=== PATIENT | female | born 1985 | race Caucasian/White ===

== ENCOUNTER → 2016-12-08 | Outpatient (CLI) | payer OTHER | LOC: FIMAGING 13:28 | PROVIDERS: ATTEND Midwife | DX: Z34.02 Encounter for supervision of normal first pregnancy, second trimester (principal); Z87.410 Personal history of cervical dysplasia; Z3A.20 20 weeks gestation of pregnancy ==

== ENCOUNTER 2017-04-19 04:37 | Inpatient (IN) | payer MEDICAID, OTHER ==
[2017-04-19] MEDS ORDERED: LR 1,000 ML IV PRN (04:44)
[2017-04-19] MEDS ORDERED: EPSOM SALT 454 GM TP PRN (04:44)
[2017-04-19] MEDS ORDERED: TERBUTALINE SULFATE 1 MG/ML VIAL IV PRN (04:44)
[2017-04-19] MEDS ORDERED: OXYTOCIN/RINGERS LACTATE 1,000 ML IV PRN (04:44)
[2017-04-19] MEDS ORDERED: IBUPROFEN 600 MG TAB PO PRN (04:44)
[2017-04-19] MEDS ORDERED: OLIVE OIL 118 ML BTL MISC PRN (04:44)
[2017-04-19 05:08] LABS: % IMMATURE GRANULYOCYTES 1.3 % (0.0-1.1); ABSOLUTE IMMATURE GRANULOCYTES 0.25 10^3/uL (0.00-0.10); ADD DIFF? NO; ADD MORPH? NO; ADD SCAN? NO; ATYPICAL LYMPHOCYTE FLAG 0 (0-99); FRAGMENT RBC FLAG 0 (0-99); HEMATOCRIT 36.4 % (38.0-47.0); HEMOGLOBIN 12.8 g/dL (12.6-16.3); LEFT SHIFT FLG 0 (0-99); LIPEMIA HEMOLYSIS FLAG 90 (0-99); MEAN CELL HEMOGLOBIN CONCENTR. 35.2 g/dL (32.4-36.7); MEAN CELL VOLUME 85.2 fL (81.5-99.8); MEAN PLATELET VOLUME 10.8 fL (8.7-11.7); PLATELET CLUMPS FLAG 0 (0-99); PLATELET COUNT 237 10^3/uL (150-400); RED BLOOD CELL COUNT 4.27 10^6/uL (4.18-5.33)
[2017-04-19] MEDS ORDERED: fentaNYL 2MCG/ML/BUP 0.1% RTU 100 ML BAG EP ONE (05:32)
[2017-04-19] MEDS ORDERED: fentaNYL 100 MCG/2 ML INJ ONE (05:32)
[2017-04-19] MEDS ORDERED: PHENYLEPHRINE HCL 100 MCG/ML SYR ONE (05:33)
[2017-04-19] MEDS ORDERED: OLIVE OIL 118 ML BTL ONE (05:38)
[2017-04-19] MEDS ORDERED: LIDOCAINE 1% 300 MG/30 ML SDV ONE (05:38)
[2017-04-19] MEDS ORDERED: AMMONIA AROMATIC 1 EACH AMP IH ONE (05:39)
[2017-04-19] MEDS ORDERED: OXYTOCIN 10 UNIT/ML VIAL ONE (05:39)
[2017-04-19] MEDS ORDERED: TERBUTALINE SULFATE 1 MG/ML VIAL ONE (05:39)
[2017-04-19] MEDS ORDERED: MISOPROSTOL 200 MCG TAB ONE (05:39)
[2017-04-19] MEDS ORDERED: NALOXONE HCL 0.4 MG/ML INJ IVP PRN (06:02)
[2017-04-19] MEDS ORDERED: PHENYLEPHRINE HCL 100 MCG/ML SYR IVP PRN (06:02)
[2017-04-19] MEDS ORDERED: ONDANSETRON 4 MG/2 ML VIAL IVP PRN (06:02)
--- NOTE | 2017-04-19 06:02 | POSTANESTH ---
Post Anesthetic Evaluation Cardiovascular Status: Normal, Stable Respiratory Status: Normal, Stable Level of Consciousness/Mental Status: Can Participate in Eval Pain Control: Adequate, Prn Tx Ordered Nausea/Vomiting Control: Adequate, Prn Tx Ordered Complications Possibly Related to Anesthesia: None Noted
[2017-04-19] MEDS ORDERED: LR 500 ML IV SCH (06:30)
[2017-04-19] MEDS ORDERED: fentaNYL 2MCG/ML/BUP 0.1% RTU 100 ML EP SCH (06:30)
--- NOTE | 2017-04-19 07:29 | GHP ---
[f rep st] HISTORY AND PHYSICAL DATE OF ADMISSION: 04/19/2017 ADMITTING DIAGNOSES: 1. Intrauterine at 39 weeks and 4 days. 2. Transfer home in active labor 3. Meconium-stained amniotic fluid HISTORY OF PRESENT ILLNESS: Patient is a 31-year-old, 1, para 0, at 39 and 4/7 weeks with an NATTY of 04/22/17 by LMP 07/16/16 and confirmed by first- trimester ultrasound. She presents as a transfer home . She was at home earlier today at 5 to 6 cm, 100%, 0 station and was progressing well. She then spontaneously ruptured membranes at about 0530 this morning and had moderate meconium stained fluid that was noted by the miller head and the patient was brought into L&D. Patient does have good care with Eli Mahmood, miller head and presented in her 1st trimester. is pretty much uncomplicated. She did have some 1st trimester nausea, vomiting, relief with Diclegis. Anatomy scan is normal. She had negative NIPT testing. Patient did receive Tdap. GBS culture is negative. PAST OB HISTORY: Patient is primiparous. 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 Cycles are regular every 28 days for 4-5 days. Patient does have a history of abnormal Pap smear, no treatment. Most recent pap smear showed ASCUS, negative HPV. We will retest . GC and chlamydia cultures are negative. PAST MEDICAL HISTORY: Unremarkable. PAST SURGICAL HISTORY: None. FAMILY HISTORY: Unremarkable. SOCIAL HISTORY: Patient is . She lives with her . Denies alcohol, tobacco, illicit drug use. CURRENT MEDICATIONS: vitamins, DHEA, iron. ALLERGIES: No known drug allergies. REVIEW OF SYSTEMS: 10-point review of systems is negative. Pertinent positives noted in HPI. LABS: A-positive, antibody negative. Rubella immune. RPR nonreactive. Hepatitis B surface antigen negative. HIV negative. Pap smear, ASCUS with negative HPV. GC, chlamydia culture is negative. H and H 14 and 40. 1 hour Glucola is normal. GBS culture is negative. PHYSICAL EXAMINATION: VITAL SIGNS: Stable. Patient is afebrile. GENERAL: A well-nourished, well-developed female. Alert, oriented x3. No apparent distress. ABDOMEN: Gravid, soft, non-tender, nondistended. PELVIC: She is noted to have swelling of the cervix on the right side, about 9 cm, 100%, 0 station, meconium noted. heart tones category 1 tracing. Positive accelerations. No decelerations. Moderate variability. After the patient received an epidural, there was a drop in her blood pressure and there was a prolonged deceleration with a dejan of 60 to 70 beats per minute. resuscitation was performed. Patient was given ephedrine and the heart tones returned to baseline. There are intermittent variable decels noted as well. ASSESSMENT: Patient is a 31-year-old, 1, para 0, at 39 and 4/7 weeks who presents in active labor; she is a transfer from home secondary to meconium-stained amniotic fluid. PLAN: 1. Admit to labor and delivery for expectant management. 2. GBS culture is negative. No antibiotics needed. 3. S/p epidural. 4. heart tones Category 2 strip. We will continue to closely monitor. 5. Anticipate normal spontaneous vaginal delivery. /[id number]/MODL MTDD
--- NOTE | 2017-04-19 08:29 | OBPROG ---
OBG Labor Progress Note Assessment/Plan: Assessment: [id number] with IUP@ 39-4wks active labor MSF cat 2 FHR tracing Plan: reassess with increasing pressure anticipate 04/19/17 08:33 Subjective: Pt doing well, she reports min pain, does report occasional vaginal pressure Objective: 04/19/17 04:30 Patient ABO/Rh A POSITIVE 04/19/17 04:30 VSS, normotensive, afebrile ctxs q 3-4min FHR 140, +accels, +variables, +early decels noted cat 1 FHR tracing SVE: deferred Oxytocin Orders Assessment - Pre-Induction/Augmentation Assessment Gestational Age: 39 week(s) and 4 day(s) ICD10 Worksheet Patient Problems: Problems Problem Status Onset homebirth transfer, delivery pain managn Acute
[2017-04-19] MEDS ORDERED: ACETAMINOPHEN 500 MG TAB ONE (09:36)
[2017-04-19] MEDS ORDERED: ACETAMINOPHEN 500 MG TAB PO ONE (09:45)
--- NOTE | 2017-04-19 11:09 | OBDEL ---
Info Type: Vaginal GBS+: No Indications for Delivery: Spontaneous Labor, [facility] ([facility] [place] 04/19/17 @ 0400) Vaginal Delivery - Labor and Delivery Onset of Contractions Date: 04/18/17 Onset of Contractions Time: 16:00 Rupture of Membranes Date: 04/19/17 Rupture of Membranes Time: 04:00 Rupture of Membranes Type: Spontaneous Amniotic Fluid Color: Meconium Stained, Thick Meconium Dilation Complete Date: 04/19/17 Dilation Complete Time: 09:38 Placenta Delivery Date: 04/19/17 Placenta Delivery Time: 10:49 Total Hours of Labor: 18 Laceration: Other (Specify) (button hole noted) Repair: 3-0, Vicryl Vaginal Sponge Count Correct: Yes Vaginal Needle Count Correct: Yes Vaginal Sweep Performed: No Delivery Events: None Delivery Comment: barbara meza did the delivery/ with observation by Javier Valenzuela CNM - Medications Labor Augmentation/Induction Methods Used: None [place] Data [place] Delivery Date: 04/19/17 Delivery Time: 10:43 NATTY: 04/22/17 Gestational Age: 39 week(s) and 4 day(s) Sex of Infant: Female Score (1 Min): 8 Score (5 Min): 9 ICD10 Worksheet Patient Problems: Problems Problem Status Onset homebirth transfer, delivery pain managn Acute
[2017-04-19 13:47] VITALS: RESP 16
[2017-04-19 15:00] VITALS: O2SAT 95
--- NOTE | 2017-04-19 15:11 | OBPP ---
Progress Note Assessment/Plan: Assessment: [id number] PP Day #0 s/p with MSF Plan: d/c home at this time due to baby transfer to [facility] pelvic rest warning signs discussed f/u with home records specialist in 24 hours 04/19/17 15:04 04/19/17 15:12 Subjective: pt doing well, she reports min pain, with pumping; denies any heavy bleeding. desires d/c home at this time. Baby was transferred to [facility] in [place]. Objective: 04/19/17 04:30 Patient ABO/Rh A POSITIVE 04/19/17 04:30 Temp Pulse Resp BP Pulse Ox 36.8 C 88 16 111/68 95 04/19/17 14:00 04/19/17 14:00 04/19/17 14:00 04/19/17 14:00 04/19/17 14:00 VSS, normotensive, afebrile Uterine Position/Fundal Height: Umbilicus -1 Uterine Tone: Firm Physical Exam - Physical Exam General Appearance: WD/WN, alert EENT: PERRL/EOMI Abdomen: non-tender, soft, other (uterus firm) Extremities: normal range of motion, non-tender, other (negative abdi's sign) Skin: normal color, warm/dry Neuro/Psych: alert, normal mood/affect, oriented x 3
--- NOTE | 2017-04-19 15:21 | OBGCSDC ---
General Delivery Information - General Info : 1 Para: 1 Delivery Physician/CNM: Azul Sparks Labs: Patient ABO/Rh A POSITIVE 04/19/17 04:30 Hct 36.4 % (38.0-47.0) L 04/19/17 04:30 Vaginal - Diagnosis Rupture of Membranes Type: Spontaneous Amniotic Fluid Color: Meconium Stained, Thick Meconium Laceration: Other (Specify) (button hole noted) Repair: 3-0, Vicryl Delivery Events: None - Operations/Procedures L&D Analgesia/Anesthesia Type: Epidural, Nitrous - Hospital Course Antepartum: none Intrapartum: attempted home transfer for MSF, received JOLENE : uncomplicated minimal bleeding denies pain desires d/c 2/2 baby transfer to [facility] - Delivery L&D Analgesia/Anesthesia Type: Epidural, Nitrous Data [place] Delivery Date: 04/19/17 Delivery Time: 10:43 NATTY: 04/22/17 Gestational Age: 39 week(s) and 4 day(s) Sex of : Female Weight (gm): 3268 g Score (1 Min): 8 Score (5 Min): 8
[2017-04-19 16:31] VITALS: BP 110/69; PULSE 90; TEMP 98.4
== END 2017-04-19 15:15 | disposition home or self-care (01) | DRG 775 ==
LOC: FLD 04:37 → FOB 13:39
PROVIDERS: ADMIT Obstetrics & Gynecology; ATTEND Obstetrics & Gynecology
PROC: 10E0XZZ Delivery of Products of Conception, External Approach (ICD-10-PCS; principal; 2017-04-19)
DX: O77.0 Labor and delivery complicated by meconium in amniotic fluid (principal); Z37.0 Single live birth; Z3A.39 39 weeks gestation of pregnancy; O71.89 Other specified obstetric trauma
CPT/HCPCS: J2370; J2590; J3010; J3105